=== PATIENT | female | born 1930 | race Caucasian/White ===

== ENCOUNTER 2018-08-28 09:32 | Observation (INO) | payer MEDICARE, OTHER ==
[~2018-08-28] VITALS: Ht 172.7 cm; Wt 72.7 kg
[~2018-08-28 09:32] MED LIST: ASPIR 8181 MG PO; CENTRUM SILVER1 EAC3 PO; CLOPIDOGREL75 MG PO; LEVAQUIN500 MG PO; LEVETIRACETAM500 MG PO; LISINOPRIL10 MG PO; MAGNESIUM OXID400 MG PO; METOPROLOL TART50 MG PO; POTASSIUM CITR10 MEQ PO; POTASSIUM GLUCO99 MG PO; SIMVASTATIN20 MG PO
--- NOTE | 2018-08-28 10:39 | NUR ---
PATIENT TO ROOM #9 YAO HOPE N.P. AT BEDSIDE EVALUATING PATIENT
--- NOTE | 2018-08-28 11:38 | Diagnostic Imaging Report ---
Examination: CT head without contrast Clinical Indication: Fall with head injury. Technique: Transaxial noncontrast images from the skull base through the vertex were obtained. Sagittal and coronal reformatted images were done. Dose modulation, iterative reconstruction, and/or weight based adjustment of the mA/kV was utilized to reduce the radiation dose to as low as reasonably achievable. Comparison: None. Findings: Scalp: No abnormalities. Bones: Intact. No fractures. No blastic or lytic lesions. Brain sulci: Appropriate for patient's age. Ventricles: Normal in size and configuration. No hydrocephalus. . Extra-axial space: No abnormalities. Parenchyma: There are patchy areas of low-attenuation within subcortical and periventricular white matter, nonspecific, but could represent microvascular ischemic disease. A cortical-based infarct is demonstrated in the left middle cerebral artery territory. There is Wallerian degeneration along the left corticospinal tract. A chronic lacunar infarct is identified in the left striatocapsular region and right putamen. No masses, hemorrhage, or acute cortical based vascular insults. Suprasellar region: No abnormalities. Craniocervical junction: The foramen magnum is patent. No Chiari one malformation. Incidental findings: Atherosclerotic calcification of the cavernous and supraclinoid internal carotid and V4 segments of the bilateral vertebral arteries. Impression: 1. No acute intracranial finding. 2. Mild chronic microvascular ischemic change. 3. 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 Signed by: Dr. Belgica Palumbo M.D. on 08/28/2018 11:35 AM
--- NOTE | 2018-08-28 12:22 | Diagnostic Imaging Report ---
Exam: Right hand 3 views History: Fall Comparison: None. Findings: Bones are osteopenic. No acute, displaced fracture or dislocation. Appropriate alignment between the distal radius, lunate, and capitate is maintained on the lateral radiograph. Advanced first carpometacarpal degenerative joint disease with scattered foci of joint space narrowing throughout the interphalangeal joints. Impression: No acute osseous abnormality. Signed by: Dr. Yoav Ontiveros M.D. on 08/28/2018 12:18 PM
--- NOTE | 2018-08-28 12:25 | Diagnostic Imaging Report ---
Exam: Right humerus 2 views, right shoulder, 2 views History: Fall, pain Comparison: None. Findings: The bones are diffusely osteopenic. There is an acute, comminuted, transversely oriented fracture of the surgical neck of the right humerus with one full shaft width medial displacement of the distal humerus. Humeral head projects appropriately adjacent to the glenoid. No acute clavicular fracture. Overlying soft tissue swelling. Partially visualized right hemithorax is well aerated. Impression: Acute, comminuted displaced fracture surgical neck right humerus. Signed by: Dr. Yoav Ontiveros M.D. on 08/28/2018 12:22 PM
--- NOTE | 2018-08-28 12:51 | Diagnostic Imaging Report ---
Examination: CT CERVICAL SPINE WITHOUT CONTRAST HISTORY:Fall with neck injury. Evaluate for fracture. COMPARISON:None. TECHNIQUE: Multidetector helical axial images were obtained without contrast from the foramen magnum to T1. Coronal and sagittal reformatted images were done. Bone and soft tissue windows were evaluated. Dose modulation, iterative reconstruction, and/or weight based adjustment of the mA/kV was utilized to reduce the radiation dose to as low as reasonably achievable. FINDINGS: Alignment:Normal alignment and lordosis. Vertebrae: Normal height and density. No acute fracture, infection or neoplasm. Disc space heights: Normal height. Caliber of spinal canal: Developmentally normal. Posterior fossa and craniocervical junction: Foramen magnum patent. No Chiari 1 malformation. Soft tissues: No abnormality. Degenerative changes: Severe degenerative narrowing at the C1-C2 joint with hyperostosis. Moderate to severe bilateral facet arthropathy from C3-C4 through C6-C7. Severe bilateral neural foraminal narrowing at C4-C5 due to uncovertebral and facet arthropathy. Severe right and moderate left neural foraminal narrowing at 5-6 due to uncovertebral and facet arthropathy. Mild right and moderate left neural foraminal narrowing due to diffuse disc osteophyte complex at C6-C7. Canal stenosis or Visualized lung apices: Biapical pleural thickening. IMPRESSION: No acute abnormality. Signed by: Dr. Belgica Palumbo M.D. on 08/28/2018 12:48 PM
[2018-08-28] MEDS ORDERED: IBUPROFEN 400 MG TAB PO PRN (14:00)
[2018-08-28] MEDS ORDERED: ACETAMINOPHEN 325 MG TAB PO PRN (14:00)
[2018-08-28] MEDS ORDERED: ACETAMINOPHEN/CODEINE 300MG - 30MG TAB PO PRN (14:00)
--- OUTSIDE RECORDS SUMMARY | 2018-08-28 14:38 | XMS REPORT ---
Author Author [facility] Address Unknown Phone Unavailable Care Team Providers Care Main Line Station Engineer Name Role Phone Jennifer EGAN Unavailable Unavailable Problems This patient has no known problems. Allergies, Adverse Reactions, Alerts This patient has no known allergies or adverse reactions. Medications This patient has no known medications. Results Test Description Test Time Test Comments Text Results Atomic Results Result Comments CT CERVICAL SPINE WO 2018-08-28 12:45:00 [place] [id number] Patient Name: DOYLE TILLMAN V MR #: [id number] : 1930 Age/Sex: 88/F Req #: [id number] Adm Physician: Ordered by: YAO HOPE WELDING MACHINE ASSEMBLER Report #: [id number] Location: ER Room/Bed: Procedure: [id number] CT/CT CERVICAL SPINE WO Exam Date: 08/28/18 Exam Time: 1045 REPORT STATUS: Signed Examination: CT CERVICAL SPINE WITHOUT CONTRAST H ISTORY:Fall with neck injury. Evaluate for fracture. COMPARISON:None. TECHNIQUE: Multidetector helical axial images were obtained without contrast from the foramen magnum to T1. Coronal and sagittal reformatted images were done. Bone and soft tissue windows were evaluated. Dose modulation, iterative reconstruction, and/or weight based adjustment of the mA/kV was utilized to reduce the radiation dose to as low as reasonably achievable. FINDINGS: Alignment:Normal alignment and lordosis. Vertebrae: Normal height and density. No acute fracture, infection or neoplasm. Disc space heights: Normal height. Caliber of spinal canal: Developmentally normal. Posterior fossa and craniocervical junction: Foramen magnum patent. No Chiari 1 malformation. Soft tissues: No abnormality. Degenerative changes: Severe degenerative narrowing at the C1-C2 joint with hyperostosis. Moderate to severe bilateral facet arthropathy from C3-C4 through C6-C7. Severe bila teral neural foraminal narrowing at C4-C5 due to uncovertebral and facet arthropathy. Severe right and moderate left neural foraminal narrowing at 5-6 due to uncovertebral and facet arthropathy. Mild right and moderate left neural foraminal narrowing due to diffuse disc osteophyte complex at C6-C7. Canal stenosis or Visualized lung apices: Biapical pleural thickening. IMPRESSION: No acute abnormality. Signed by: Dr. Belgica Palumbo M.D. on 08/28/2018 12:48 PM Dictated By: BELGICA LYNN MD 1248 Transcribed By: CELIA on 08/28/18 1248 COPY TO: YAO HOPE WELDING MACHINE ASSEMBLER SHOULDER RIGHT COMPLETE 2018-08-28 12:20:00 [place] [address] Patient Name: DOYLE TILLMAN V MR #: [id number] : 1930 Age/Sex: 88/F Req #: [id number] Adm Physician: Ordered by: RAFAEL EGAN MD Report #: [id number] Location: ER Room/Bed: Procedure: [id number] DX/SHOULDER RIGHT COMPLETE Exam Date: Exam Time: REPORT STATUS: Signed Exam: Right humerus 2 views, right shoulder, 2 views History: Fall, pain Comparison: None. Findings: The bones are diffusely osteopenic. There is an acute, comminuted, transversely oriented fracture of the surgical neck of the right humerus with one full shaft width medial displacement of the distal humerus. Humeral head projects appropriately adjacent to the glenoid. No acute clavicular fracture. Overlying soft tissue swelling. Partially visualized right hemithorax is well aerated. Impression: Acute, comminuted displaced fracture surgical neck right humerus. Signed by: Dr. Byron Iqbal M.D. on 08/28/2018 12:22 PM Dictated By: BYRON IQBAL MD 1222 Transcribed By: CELIA on 08/28/182 COPY TO: RAFAEL EGAN MD HUMERUS RIGHT 2+VIEWS 2018-08-28 12:20:00 [place] [address] Patient Name: DOYLE TILLMAN V MR #: [id number] : 1930 Age/Sex: 88/F Req #: [id number] Adm Physician: Ordered by: RAFAEL EGAN MD Report #: [id number] Location: ER Room/Bed: Procedure: [id number] DX/HUMERUS RIGHT 2+VIEWS Exam Date: Exam Time: REPORT STATUS: Signed Exam: Right humerus 2 views, right shoulder, 2 views History: Fall, pain Comparison: None. Findings: The bones are diffusely osteopenic. There is an acute, comminuted, transversely oriented fracture of the surgical neck of the right humerus with one full shaft width medial displacement of the distal humerus. Humeral head projects appropriately adjacent to the glenoid. No acute clavicular fracture. Overlying soft tissue swelling. Partially visualized right hemithorax is well aerated. Impression: Acute, comminuted displaced fracture surgical neck right humerus. Signed by: Dr. Byron Iqbal M.D. on 08/28/2018 12:22 PM Dictated By: BYRON IQBAL MD 1222 Transcribed By: CELIA on 08/28/18 1222 COPY TO: RAFAEL EGAN MD HAND 3+ VIEWS RIGHT 2018-08-28 12:17:00 [place] [address] Patient Name: DOYLE TILLMAN V MR #: [id number] : 1930 Age/Sex: 88/F Req #: [id number] Adm Physician: Ordered by: RAFAEL EGAN MD Report #: [id number] Location: ER Room/Bed: Procedure: [id number] DX/HAND 3+ VIEWS RIGHT Exam Date: Exam Time: REPORT STATUS: Signed Exam: Right hand 3 views History: Fall Comparison: None. Findings: Bones are osteopenic. No acute, displaced fracture or dislocation. Appropriate alignment between the distal radius, lunate, and capitate is maintained on the lateral radiograph. Advanced first carpometacarpal degenerative joint disease with scattered foci of joint space narrowing throughout the interphalangeal joints. Impression: No acute osseous abnormality. Signed by: Dr. Byron Iqbal M.D. on 08/28/2018 12:18 PM Dictated By: BYRON IQBAL MD 1218 Transcribed By: CELIA on 08/28/188 COPY TO: RAFAEL EGAN MD CT BRAIN WO 2018-08-28 11:15:00 [place] [address] Patient Name: DOYLE TILLMAN V MR #: [id number] : 1930 Age/Sex: 88/F Req #: [id number] Adm Physician: Ordered by: YAO HOPE WELDING MACHINE ASSEMBLER Report #: [id number] Location: ER Room/Bed: Procedure: [id number] CT/CT BRAIN WO Exam Date: 08/28/18 Exam Time: 1045 REPORT STATUS: Signed Examination: CT head without contrast Clinical Indication: Fall with head injury. Technique: Transaxial noncontrast images from the skull base through the vertex were obtained. Sagittal and coronal reformatted images were done. Dose modulation, iterative reconstruction, and/or weight based adjustment of the mA/kV was utilized to reduce the radiation dose to as low as reasonably achievable. Comparison: None. Findings: Scalp: No abnormalities. Bones: Intact. No fractures. No blastic or lytic lesions. Brain sulci: Appropriate for patient's age. Ventricles: Normal in size and configuration. No hydrocephalus. . Extra-axial space: No abnormalities. Parenchyma: There are patchy areas of low-attenuation within subcortical and periventricular white matter, nonspecific, but could represent microvascular ischemic disease. A cortical-based infarct is demonstrated in the left middle cerebral artery territory. There is Wallerian degeneration along the left corticospinal tract. A chronic lacunar infarct is identified in the left striatocapsular region and right putamen. No masses, hemorrhage, or acute cortical based vascular insults. Suprasellar region: No abnormalities. Craniocervical junction: The foramen magnum is patent. No Chiari one malformation. Incidental findings: Atherosclerotic calcification of the cavernous and supraclinoid internal carotid and V4 segments of the bilateral vertebral arteries. Impression: 1. No acute intracranial finding. 2. Mild chronic microvascular ischemic change. 3. 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 Signed by: Dr. Belgica Palumbo M.D. on 08/28/2018 11:35 AM Dictated By: BELGICA LYNN MD 1135 Transcribed By: CELIA on 08/28/18 1135 COPY TO: YAO HOPE NP
[2018-08-28 15:20] VITALS: BP 188/79
[2018-08-28 15:45] VITALS: BP 188/79
--- NOTE | 2018-08-28 15:45 | NUR ---
PATIENT RECEIVED FROM ER PER STRETCHER. ALERT AND VERBALLY RESPONSIVE, SOME EXPRESSIVE APHASIA NOTED. S/P FALL AT HOME; IMMOBILIZER TO RIGHT SHOULDER , SKIN TEAR TO LEFT ELBOW, BRUISE TO RIGHT SHOULDER. RIGHT SIDE WEAKNESS DUE TO PREVIOUS CVA. BED IN LOWER POSITION AND LOCKED. CALL LIGHT AT EASY REACH, INSTRUCTED TO CALL FOR ASSISTANCE NEEDED. FAMILY AT BED SIDE.
[2018-08-28 16:00] VITALS: BP 188/79
--- NOTE | 2018-08-28 16:35 | NUR ---
SPOKE WITH MD REGARDING ELEVATED B/P, NEW ORDER RECEIVED.
[2018-08-28] MEDS: LISINOPRIL 10 MG TAB PO SCH (16:59)
[2018-08-28 20:00] VITALS: BP 161/71
[2018-08-28 21:00] VITALS: BP 161/71
[2018-08-29] VITALS: BP 137/62
[2018-08-29 04:00] VITALS: BP 152/65
[2018-08-29 05:45] LABS: BASOPHILS % 0.3 % (0.0-1.0); EOSINOPHILS % 0.5 % (0.0-6.0); HEMATOCRIT 38.1 % (34.2-44.1); HEMOGLOBIN 12.6 g/dL (12.0-16.0); LYMPHOCYTES # (AUTO) 2.5 (1.0-3.2); LYMPHOCYTES % 33.1 % (18.0-39.1); MEAN CORPUSCULAR HGB CONC 33.1 g/dL (31-35); MEAN CORPUSCULAR VOLUME 99.7 fL (81-99); MONOCYTES # (AUTO) 1.4 (0.2-0.8); MONOCYTES % 18.3 % (4.4-11.3); NEUTROPHILS # (AUTO) 3.6 (2.1-6.9); NEUTROPHILS % 47.3 % (38.7-80.0); PLATELET COUNT 176 x10e3/uL (140-360); RED BLOOD COUNT 3.82 x10e6/uL (3.6-5.1)
[2018-08-29 06:14] LABS: ALANINE AMINOTRANSFERASE 15 IU/L (0-55); ALBUMIN 3.7 g/dL (3.5-5.0); ALBUMIN/GLOBULIN RATIO 1.5 (0.8-2.0); ALKALINE PHOSPHATASE 43 IU/L (40-150); ANION GAP 13.9 mmol/L (8-16); BLOOD UREA NITROGEN 24 mg/dL (7-26); BUN/CREATININE RATIO 27 (6-25); CALCIUM 9.4 mg/dL (8.4-10.2); CARBON DIOXIDE 21 mmol/L (22-29); CHLORIDE 109 mmol/L (98-107); CREATININE, SERUM 0.88 mg/dL (0.57-1.11); EST GLOMERULAR FILTRATION RATE > 60 ML/MIN (60-); GLUCOSE 114 mg/dL (74-118); POTASSIUM 3.9 mmol/L (3.5-5.1); SODIUM 140 mmol/L (136-145)
[2018-08-29 07:28] VITALS: BP 156/72
--- NOTE | 2018-08-29 08:40 | NUR ---
ORDERS FOR DR STIVEN [facility] EVAL MORE APPROPRIATE FOR SNF LEVEL OF CARE NO INPT CRITERIA CALLED AND NOTIFIED DR COLLAZO ORDER FOR SNF EVAL
[2018-08-29] MEDS: LEVOFLOXACIN 500 MG TAB PO SCH (08:58)
[2018-08-29] MEDS: LISINOPRIL 10 MG TAB PO SCH (08:59)
[2018-08-29] MEDS: METOPROLOL TARTRATE 50 MG TAB PO SCH (08:59)
[2018-08-29 11:37] VITALS: BP 133/61
--- NOTE | 2018-08-29 12:36 | NUR ---
SPOKE WITH FAMILY ABOUT DIFFERENT LEVELS OF CRITERIA OF CARE, GOT CHOICE [facility] FILED IN CHART REP IS MEETING WITH FAMILY AT THIS TIME, WILL UPDATE WHEN GET MORE INFORMATION
--- NOTE | 2018-08-29 12:38 | NUR ---
SOCIAL WORK INITIAL ASSESSMENT Product Marketing Coordinator to bedside to discuss plan of care with patient/family. CM/SW role and care transitions discussed. Anticipated discharge plan discussed along with duration of care. CM/SW discussed patients right to make decisions in care. CM/SW work hours given. Patient lives: IN HOUSE ALONE Admit/Transfer: VIA HOME POA/Emergency contact: DAUGHTER ABIGAIL FERNANDES [phone] SON BJORN TILLMAN [phone] Current/Previous Home Health: NONE PCP/Follow-up Care: VALE Current/Previous DME: TJ Other Services: NONE Employment Status: RETIRED Areas of Concerns: NONE Referral Needs: SNF Education Needs: NONE IMM/MARMOLEJO given and signed (if applicable): MARMOLEJO Goal for discharge: SNF CM/SW left business card at the bedside with contact information. Name and number was also written on the patients whiteboard. Patient verbalized understanding of discussion. CM will follow-up with ongoing discharge and transition of care needs.
--- NOTE | 2018-08-29 13:16 | NUR ---
RTF COMPLETED AND PUT WITH CHART AT STATION FOR COMPLETION OF TRANSFER WHEN DISCHARGE ORDER IS OBTAINED.
[2018-08-29 15:07] VITALS: BP 118/58
--- NOTE | 2018-08-29 18:55 | NUR ---
Received report from previous nurse. Call west within reach. Patient in bed.
[2018-08-29 20:22] VITALS: BP 174/74
[2018-08-29] MEDS ORDERED: MAGNESIUM OXIDE 400 MG TAB PO SCH (21:00)
[2018-08-29] MEDS ORDERED: LEVETIRACETAM 500 MG TAB PO SCH (21:00)
[2018-08-29] MEDS ORDERED: SIMVASTATIN 20 MG TAB PO SCH (21:00)
[2018-08-29] MEDS ORDERED: CLOPIDOGREL BISULFATE 75 MG TAB PO SCH (21:00)
[2018-08-29] MEDS ORDERED: ASPIRIN 81 MG CHEW TAB PO SCH (21:00)
[2018-08-30] VITALS: BP 145/67
[2018-08-30 00:14] VITALS: BP 145/67
--- NOTE | 2018-08-30 02:16 | Consultation ---
DATE OF CONSULTATION: 08/29/2018 REASON FOR CONSULTATION: 1. Right humeral fracture. 2. Expressive aphasia. HISTORY: Mainly from medical record and chart as the patient is not able to give me any history at all and is a very poor historian. The patient is an [id number], who came into the hospital after falling and found to have a subacromial fracture of the humerus. She was to be evaluated by Orthopedics. The patient cannot given me any history and in fact seems to have some expressive aphasia. Not able to really give much information as to her prior level of function or her home situation. The patient underwent CT of the brain which showed no acute intracranial findings. There is a chronic left middle cerebral artery infarct with chronic lacunar infarction noted. She had a cervical spine series, which showed no acute abnormality and also the right hand x-ray showed no acute osseous abnormality. Right humeral x-ray showed acute comminuted displaced fracture of the cervical neck right humerus. The patient is otherwise in the sling right now in the right arm. The patient's information is limited as there is no other information in the chart or in the electronic medical records at this time. PAST MEDICAL HISTORY: Apparently, left MCA CVA with expressive aphasia. PAST SURGICAL HISTORY: Uncertain. SOCIAL HISTORY: Uncertain. FAMILY HISTORY: Unable to obtain. REVIEW OF SYSTEMS: Unable to obtain. PHYSICAL EXAMINATION: VITAL SIGNS: Temperature 97.5, respirations 18, , blood pressure 133/61. GENERAL: The patient is sitting in the bed. MUSCULOSKELETAL: Her right shoulder is more anterior. She is in a shoulder sling right now, not complaining of much pain. She can move her left arm fairly well, but with regard to her lower extremity she really did resist against me. She can move her legs, but she did not follow commands to ankle dorsiflex or flex her hips or knees. HEART: Regular rate and rhythm. LUNGS: Diminished breath sounds, but did not take a deep breath. ABDOMEN: Nontender, nondistended. NECK: No JVD. NEURO: Neurovascular signs are intact to the right arm and leg. LABORATORY DATA: White cell count is 7.5, hemoglobin 12.6, hematocrit 38.1, platelets 176. IMPRESSION: 1. Right humeral neck fracture displaced. Ortho evaluation pending. 2. Expressive aphasia. She can communicate, but is not able to really follow commands at least not this time. 3. Chronic right MCA CVA. PLAN: Await orthopedic evaluation. We will follow along with you. Next level of care depended on what she is able do therapy . Thank you once again for allowing me to participate in the care of this pleasant, but unfortunate patient. Howard Diamond DO RPL/MODL /[id number]
[2018-08-30 04:00] VITALS: BP 160/72
--- NOTE | 2018-08-30 06:47 | NUR ---
Patient refused shower and bath
--- NOTE | 2018-08-30 06:48 | NUR ---
Patient son was in the room and patient refused shower/bath. Son asked her a couple times and she said no to bathing
--- NOTE | 2018-08-30 07:11 | NUR ---
Gave report to oncoming nurse. call west within reach. patient in bed.
[2018-08-30 08:19] VITALS: BP 142/73
[2018-08-30] MEDS: LEVOFLOXACIN 500 MG TAB PO SCH (08:52)
[2018-08-30] MEDS: LISINOPRIL 10 MG TAB PO SCH (08:53)
[2018-08-30] MEDS: METOPROLOL TARTRATE 50 MG TAB PO SCH (08:53)
--- NOTE | 2018-08-30 11:18 | NUR ---
Report given to Nurse B[facility] at [facility].
[2018-08-30 12:17] VITALS: BP 142/64
--- NOTE | 2018-09-02 05:43 | Discharge Summary ---
DISCHARGE DIAGNOSES: 1. Status post fall with a right humeral fracture. 2. History of cerebrovascular accident with expressive aphasia. 3. Hypertension. 4. Hyperlipidemia. 5. History of seizure. DISPOSITION: The patient was transferred to a prison facility. HISTORY OF PRESENT ILLNESS AND HOSPITAL COURSE: The patient is a lady who lives at home, who unfortunately fell and sustained a right proximal humeral fracture, who was seen by Orthopedics, who said that she did not need surgical intervention at this time, but then did a splint and will follow up as an outpatient with Dr. Whaley, the orthopedist, but due to living on her own, the patient is not going to be able to attend to herself, so we looked at inpatient rehab which she did not qualify per her insurance. She did have evidence of urinary tract infection and did grow out Streptococcus viridans, but she was transferred with Levaquin and so when she was approved for prison, she was then transferred to a prison facility for continued therapy until she gets independent and can move back home, so please see hospital chart for full details. MD KEN Goddard/KARTHIKEYAN /[id number]
== END 2018-08-30 12:46 ==
LOC: ER 09:32 → ERHOLD 14:34 → IMCU 15:07
PROVIDERS: ADMIT Internal Medicine; ATTEND Internal Medicine
DX: S42.221A 2-part displaced fracture of surgical neck of right humerus, initial encounter for closed fracture (principal); W01.0XXA Fall on same level from slipping, tripping and stumbling without subsequent striking against object, initial encounter; Y93.01 Activity, walking, marching and hiking; Y92.019 Unspecified place in single-family (private) house as the place of occurrence of the external cause; I25.10 Atherosclerotic heart disease of native coronary artery without angina pectoris; I25.2 Old myocardial infarction; I10 Essential (primary) hypertension; I69.351 Hemiplegia and hemiparesis following cerebral infarction affecting right dominant side; Z09 Encounter for follow-up examination after completed treatment for conditions other than malignant neoplasm; Z98.61 Coronary angioplasty status; Z88.8 Allergy status to other drugs, medicaments and biological substances; Z82.49 Family history of ischemic heart disease and other diseases of the circulatory system; Z79.01 Long term (current) use of anticoagulants; E78.00 Pure hypercholesterolemia, unspecified; G40.909 Epilepsy, unspecified, not intractable, without status epilepticus; I69.320 Aphasia following cerebral infarction; N39.0 Urinary tract infection, site not specified; B95.4 Other streptococcus as the cause of diseases classified elsewhere
CPT/HCPCS: 36415; 70450; 72125; 73030; 73060; 73130; 80053; 83735; 85025; 87086; 99284; G0378 ×3

== ENCOUNTER 2018-12-22 18:59 | Inpatient (IN) | payer MEDICARE ==
[~2018-12-22] VITALS: Ht 172.7 cm; Wt 77.3 kg
[2018-12-22] MEDS: SODIUM CHLORIDE 0.9% 1000ML 1,000 ML IV SCH
--- OUTSIDE RECORDS SUMMARY | 2018-12-22 19:03 | XMS REPORT | Continuity of Care Document ---
Author Author [email or web address] Address Unknown Phone Unavailable Care Team Providers Care Security And Privacy Consultant Name Role Phone [facility] [employer] Unavailable Unavailable Problems Problem Status Onset Date Classification Date Reported Comments Source Dehydration Active Problem 08/30/2018 [facility] Frequent falls Active Problem 08/30/2018 [facility] Humerus surgical neck fracture Active Problem 08/30/2018 [facility] Medications Medication Details Route Status Patient Instructions Ordering Provider Order Date Source Aspirin (Aspir 81) 81 Mg Tablet. Bedtime [facility] Clopidogrel Bisulfate (Clopidogrel) 75 Mg Tablet Bedtime Active [facility] Levetiracetam 500 Mg Tablet Bedtime Active [facility] Levofloxacin (Levaquin) 500 Mg Tablet Daily Active [facility] Lisinopril 10 Mg Tablet Daily [facility] Magnesium Oxide 400 Mg Tablet Bedtime [facility] Metoprolol Tartrate 50 Mg Tablet Daily [facility] Mu-Vits-Min Th/Lycopene/Lutein (Centrum Silver Tablet) 1 Each Tablet Daily [facility] Potassium Gluconate 99 Mg Tablet Bedtime [facility] Simvastatin 20 Mg Tablet Today At 9:00PM [facility] Allergies, Adverse Reactions, Alerts Substance Category Reaction Severity Reaction type Status Date Reported Comments Source PHENERGAN---POSSIBLE DRUG ALLERGIES---NOT SURE Unknown Allergy to Substance Active 01/09/2009 [facility] Promethazine POSSIBLE DRUG ALLERGY- NOT SURE Unknown Allergy to Substance Active 11/21/2016 [facility] Immunizations No Data Provided for This Section Results Order Name Results Value Reference Range Date Interpretation Comments Source Blood leukocytes automated count (number/volume) 7.53 4.8 - 10.8 08/29/2018 [facility] Blood erythrocytes automated count (number/volume) 3.82 3.6 - 5.1 08/29/2018 [facility] Blood hemoglobin measurement (moles/volume) 12.6 12.0 - 16.0 08/29/2018 [facility] Automated blood hematocrit (volume fraction) 38.1 34.2 - 44.1 08/29/2018 [facility] Automated erythrocyte mean corpuscular volume 99.7 81 - 99 08/29/2018 [facility] Automated erythrocyte mean corpuscular hemoglobin (mass per erythrocyte) 33.0 28 - 32 08/29/2018 [facility] Automated erythrocyte mean corpuscular hemoglobin concentration measurement (mass/volume) 33.1 31 - 35 08/29/2018 [facility] RDW BldCo-Rto 14.0 11.7 - 14.4 08/29/2018 [facility] Automated blood platelet count (count/volume) 176 140 - 360 08/29/2018 [facility] Automated blood segmented neutrophil count as percentage of total leukocytes 47.3 38.7 - 80.0 08/29/2018 [facility] Automated blood lymphocyte count as percentage ot total leukocytes 33.1 18.0 - 39.1 08/29/2018 [facility] Automated blood monocyte count as percentage of total leukocytes 18.3 4.4 - 11.3 08/29/2018 [facility] Automated blood eosinophil count as percentage of total leukocytes 0.5 0.0 - 6.0 08/29/2018 [facility] Automated blood basophil count as percentage of total leukocytes 0.3 0.0 - 1.0 08/29/2018 [facility] IM GRANULOCYTES % 0.5 0.0 - 1.0 08/29/2018 [facility] Automated blood neutrophil count 3.6 2.1 - 6.9 08/29/2018 [facility] Blood lymphocytes count (number/volume) 2.5 1.0 - 3.2 08/29/2018 [facility] Blood monocytes automated count (number/volume) 1.4 0.2 - 0.8 08/29/2018 [facility] Automated blood eosinophil count 0.0 0.0 - 0.4 08/29/2018 [facility] Automated blood basophil count (count/volume) 0.0 0.0 - 0.1 08/29/2018 [facility] Absolute Immature Granulocyte (auto 0.04 0 - 0.1 08/29/2018 [facility] Serum or plasma sodium measurement (moles/volume) 140 136 - 145 08/29/2018 [facility] Serum or plasma potassium measurement (moles/volume) 3.9 3.5 - 5.1 08/29/2018 [facility] Serum or plasma chloride measurement (moles/volume) 109 98 - 107 08/29/2018 [facility] Serum or plasma carbon dioxide, total measurement (moles/volume) 21 22 - 29 08/29/2018 [facility] Serum or plasma anion gap 13.9 8 - 16 08/29/2018 [facility] Serum or plasma urea nitrogen measurement (mass/volume) 24 7 - 26 08/29/2018 [facility] Serum or plasma creatinine measurement (mass/volume) 0.88 0.57 - 1.11 08/29/2018 [facility] Serum or plasma urea nitrogen/creatinine mass ratio 27 6 - 25 08/29/2018 [facility] Estimated glomerular filtration rate (GFR) determination > 60 60 08/29/2018 [facility] Glucose measurement 114 74 - 118 08/29/2018 [facility] Serum or plasma calcium measurement (mass/volume) 9.4 8.4 - 10.2 08/29/2018 [facility] Serum or plasma magnesium measurement (mass/volume) 2.3 1.3 - 2.1 08/29/2018 [facility] Serum or plasma total bilirubin measurement (mass/volume) 0.6 0.2 - 1.2 08/29/2018 [facility] Aspartate Amino Transf (AST/SGOT) 17 5 - 34 08/29/2018 [facility] Serum or plasma alanine aminotransferase measurement (enzymatic activity/volume) 15 0 - 55 08/29/2018 [facility] Serum or plasma protein measurement (mass/volume) 6.2 6.5 - 8.1 08/29/2018 [facility] Serum or plasma albumin measurement (mass/volume) 3.7 3.5 - 5.0 08/29/2018 [facility] Plasma globulin measurement (mass/volume) 2.5 2.3 - 3.5 08/29/2018 [facility] Serum or plasma albumin/globulin mass ratio 1.5 0.8 - 2.0 08/29/2018 [facility] Serum or plasma alkaline phosphatase measurement (enzymatic activity/volume) 43 40 - 150 08/29/2018 [facility] Bacterial urine culture Urine Culture [facility] Pathology Reports No Data Provided for This Section Diagnostic Reports No Data Provided for This Section Consultation Notes No Data Provided for This Section Discharge Summaries No Data Provided for This Section History and Physicals No Data Provided for This Section Vital Signs No Data Provided for This Section Encounters Location Location Details Encounter Type Encounter Number Reason For Visit Attending Provider ADM Date DC Date Status Source Discharged Inpatient (obs) [id number] SABA COLLAZO MD 08/28/2018 08/30/2018 [facility] Procedures Procedure Code Date Perfomer Comments Source Computed tomography of brain without radiopaque contrast [id number] 08/28/2018 [facility] Computed tomography of cervical spine without contrast [id number] 08/28/2018 [facility] Assessment and Plan No Data Provided for This Section Plan of Care Plan of Care Date Source Discharge Date 08/30/18 12:46pm Disposition TRANSFER [facility] Instructions/Education Provided Fractures - Humerus Fall Prevention Weakness (Generalized) Prescriptions See Medication Section Additional Instructions/Education Activity as tolerated Diet as tolerated 08/30/2018 [facility] Social History Social History Date Source Social History Problem Response Recorded Date/Time Onset Date Status Hx Psychiatric Problems No 11/22/2016 2:50pm Not Applicable Not Applicable Hx Eating Disorder No 11/22/2016 2:50pm Not Applicable Not Applicable Hx Substance Use Disorder No 11/22/2016 2:50pm Not Applicable Not Applicable Hx Depression No 11/22/2016 2:50pm Not Applicable Not Applicable Hx Alcohol Use No 11/22/2016 2:50pm Not Applicable Not Applicable Hx Physical Abuse No 11/22/2016 2:50pm Not Applicable Not Applicable Smoking Status Start Date Stop Date Never Smoker 08/30/2018 [facility] Family History No Data Provided for This Section Advance Directives Order Name Results Value Date Source Advance Directives Advance Directives Directive Response Recorded Date/Time Does the patient have an advance directive? No 08/28/18 3:45pm If yes, is advance directive on file with [facility]? No 08/28/18 3:45pm If not on file with [facility] will patient provide a copy? Yes 08/28/18 3:45pm Do you have a Directive to Physician? Yes 08/28/18 10:15am Do you have a Medical Power of Rental Salesperson? Yes 08/28/18 10:15am Do you have an out of hospital Do Not Resuscitate Order? Yes 08/28/18 10:15am Do you have any special needs we should be aware of? No 08/28/18 10:15am Do you have a support person here with you today? Yes 08/28/18 10:15am Did patient receive Notice of Privacy Practices? Yes 08/28/18 10:15am Did patient receive patient rights and responsibilities? Yes 08/28/18 10:15am 08/30/2018 [facility] Functional Status No Data Provided for This Section
[2018-12-22] MEDS ORDERED: ACETAMINOPHEN 1000 MG/100 ML 100 ML IV ONE (19:37)
[2018-12-22] MEDS ORDERED: ACETAMINOPHEN 1000 MG/100 ML IV STA (19:43)
[2018-12-22] MEDS ORDERED: SODIUM CHLORIDE 0.9% 1000ML 1,000 ML IV ONE (19:45)
[2018-12-22 19:51] LABS: BASOPHILS % 0.2 % (0.0-1.0); EOSINOPHILS % 0.1 % (0.0-6.0); HEMATOCRIT 40.3 % (34.2-44.1); HEMOGLOBIN 13.6 g/dL (12.0-16.0); LYMPHOCYTES % 9.3 % (18.0-39.1); MEAN CORPUSCULAR HEMOGLOBIN 33.2 pg (28-32); MEAN CORPUSCULAR HGB CONC 33.7 g/dL (31-35); MEAN CORPUSCULAR VOLUME 98.3 fL (81-99); MONOCYTES % 11.4 % (4.4-11.3); NEUTROPHILS % 77.9 % (38.7-80.0); PLATELET COUNT 168 x10e3/uL (140-360); RED CELL DISTRIBUTION WIDTH 13.3 % (11.7-14.4)
[2018-12-22 19:52] LABS: LYMPHOCYTES # (AUTO) 1.2 (1.0-3.2); MONOCYTES # (AUTO) 1.5 (0.2-0.8); NEUTROPHILS # (AUTO) 10.4 (2.1-6.9)
[2018-12-22 20:03] LABS: INR 1.06; PROTHROMBIN TIME 14.3 seconds (11.9-14.5)
[2018-12-22 20:04] LABS: PARTIAL THROMBOPLASTIN TIME 31.3 seconds (23.8-35.5)
[2018-12-22 20:11] LABS: AMYLASE 60 U/L (25-125); LIPASE 35 U/L (8-78)
[2018-12-22 20:13] LABS: ALBUMIN 4.1 g/dL (3.5-5.0); ALBUMIN/GLOBULIN RATIO 1.6 (0.8-2.0); ANION GAP 15.4 mmol/L (8-16); CALCIUM 9.7 mg/dL (8.4-10.2); CREATININE, SERUM 1.2 mg/dL (0.57-1.11); POTASSIUM 4.4 mmol/L (3.5-5.1)
[2018-12-22] MEDS ORDERED: CEFTRIAXONE SOD 1 GM/NS 50 ML 50 ML IV ONE (20:30)
[2018-12-22] MEDS ORDERED: TRIAMCINOLONE A15 G1 TOP (20:35)
[2018-12-22 20:55] LABS: BILIRUBIN,URINE NEGATIVE (NEGATIVE); CLARITY,URINE TURBID (CLEAR); COLOR,URINE RED (YELLOW); KETONES,URINE NEGATIVE (NEGATIVE); LEUKOCYTE ESTERASE ,URINE SMALL (NEGATIVE); NITRITE,URINE POSITIVE (NEGATIVE); URINE UROBILINOGEN 0.2 mg/dL (0.2 - 1)
[2018-12-22 20:56] LABS: PROTEIN,URINE DIPSTICK 3+ (NEGATIVE)
[2018-12-22 20:58] LABS: BACTERIA,URINE MODERATE /HPF; EPITHELIAL CELLS,URINE RARE /LPF; RBC,URINE >50 /HPF (0-5)
--- NOTE | 2018-12-22 22:08 | Diagnostic Imaging Report ---
EXAM: CT Abdomen and Pelvis WITHOUT contrast INDICATION: ^abd pain, fever, bloody diarrhea ^20181222 ^2100 ^Y COMPARISON: None. TECHNIQUE: Abdomen and pelvis were scanned utilizing a multidetector helical scanner from the lung base to the pubic symphysis without administration of IV contrast. Absence of intravenous contrast decreases sensitivity for detection of focal lesions and vascular pathology. Coronal and sagittal reformations were obtained. Routine protocol was performed. IV CONTRAST: None ORAL CONTRAST: None. COMPLICATIONS: None RADIATION DOSE: Total DLP: 609.38 mGy*cm Estimated effective dose: (DLP x 0.015 x size factor) mSv CTDIvol has been reviewed. It is below the limits set by the Radiation Protocol Committee (RPC). FINDINGS: LINES and TUBES: None. LOWER THORAX: Posterior bilateral lower lobe hazy opacities. HEPATOBILIARY: Borderline hepatomegaly. Hepatic dome calcified granuloma. Approximately 1.4 cm left hepatic lobe hypodensity (series 2, image 13) cannot be characterized on this unenhanced study. No biliary ductal dilation. GALLBLADDER: No radio-opaque stones or sludge. No wall thickening. SPLEEN: No splenomegaly. PANCREAS: No focal masses or ductal dilatation. ADRENALS: No adrenal nodules KIDNEYS/URETERS: No hydronephrosis. No contour deforming renal lesion. Evaluation of renal parenchyma is limited without intravenous contrast. Mild nonspecific bilateral perinephric fat stranding. No stones. GI TRACT: No abnormal distention, wall thickening, or evidence of bowel obstruction. Colonic diverticulosis without evidence of there is colitis. Appendix is normal. PELVIC ORGANS/BLADDER: Irregular pelvic mass with calcifications is probably enlarged multi fibroid uterus. Bladder is nondistended, demonstrating mild wall thickening. LYMPH NODES: No lymphadenopathy. VESSELS: There is moderate atherosclerotic disease in the aorta and major arterial branches. Ectatic focal infrarenal abdominal aorta measuring 2.6 cm. PERITONEUM / RETROPERITONEUM: No free air or fluid. BONES: Generalized demineralization. Degenerative changes of spine. SOFT TISSUES: Unremarkable. IMPRESSION: 1. Limited study without intravenous contrast. 2. No nephrolithiasis or evidence of obstructive urolithiasis. 3. Bladder wall thickening, could be due to underdistention or cystitis in the appropriate clinical context. 4. Colonic diverticulosis without evidence of diverticulitis. 5. Pelvic mass with calcifications, probably enlarged multi fibroid uterus, which can be further evaluated with nonurgent ultrasound. 6. Posterior bilateral lower lobe lung hazy opacities, probably subsegmental atelectasis. Underlying pneumonia cannot be excluded in the appropriate clinical context. Signed by: Dr. Zenon Conte MD on 12/22/2018 10:05 PM
--- NOTE | 2018-12-22 22:11 | Diagnostic Imaging Report ---
EXAMINATION: CHEST SINGLE (PORTABLE) INDICATION: ^fever ^20181222 ^2109 ^Y COMPARISON: None FINDINGS: AP view TUBES and LINES: None. LUNGS: Lungs are well inflated. Central peribronchial cuffing. PLEURA: No pleural effusion or pneumothorax. HEART AND MEDIASTINUM: The cardiomediastinal silhouette is unremarkable. BONES AND SOFT TISSUES: No acute osseous lesion. Nonhealed fracture deformity of right humeral head. Soft tissues are unremarkable. UPPER ABDOMEN: No free air under the diaphragm. IMPRESSION: Central peribronchial cuffing. Underlying/developing pneumonia cannot be excluded in the right infrahilar region. Signed by: Dr. Zenon Conte MD on 12/22/2018 10:08 PM
[2018-12-22] MEDS ORDERED: AZITHROMYCIN 500MG/NS 250 ML 250 ML IV STA (22:16)
[2018-12-22] MEDS ORDERED: AZITHROMYCIN 500MG/SOD CHL 0.9% 250ML BAG IV SCH (22:30)
[2018-12-22] MEDS ORDERED: CEFTRIAXONE SOD 1 GRAM/0.9% SOD CHL 50ML BAG IV SCH (22:30)
--- OUTSIDE RECORDS SUMMARY | 2018-12-22 22:38 | XMS REPORT | Continuity of Care Document ---
Author Author [employer] Address Unknown Phone Unavailable Care Team Providers Care Chimney Builder Helper Name Role Phone [facility] [employer] Unavailable Unavailable Problems Problem Status Onset Date Classification Date Reported Comments Source Dehydration Active Problem 08/30/[address] [facility] Frequent falls Active Problem 08/30/[address] [facility] Humerus surgical neck fracture Active Problem 08/30/[address] [facility] Medications Medication Details Route Status Patient Instructions Ordering Provider Order Date Source Aspirin (Aspir 81) 81 Mg Tablet. Bedtime [facility] Clopidogrel Bisulfate (Clopidogrel) 75 Mg Tablet Bedtime Active [facility] Levetiracetam 500 Mg Tablet Bedtime Active [facility] Levofloxacin (Levaquin) 500 Mg Tablet Daily Active [facility] Lisinopril 10 Mg Tablet Daily [facility] Magnesium Oxide 400 Mg Tablet Bedtime [facility] Metoprolol Tartrate 50 Mg Tablet Daily [facility] Mu-Vits-Min Th/Lycopene/Lutein (Centrum Silver Tablet) 1 Each Tablet Daily [facility] Potassium Gluconate 99 Mg Tablet Bedtime [facility] Simvastatin 20 Mg Tablet Today At 9:00PM [facility] Allergies, Adverse Reactions, Alerts Substance Category Reaction Severity Reaction type Status Date Reported Comments Source PHENERGAN---POSSIBLE DRUG ALLERGIES---NOT SURE Unknown Allergy to Substance Active 01/09/[address] [facility] Promethazine POSSIBLE DRUG ALLERGY- NOT SURE Unknown Allergy to Substance Active 11/21/[address] [facility] Immunizations No Data Provided for This Section Results Order Name Results Value Reference Range Date Interpretation Comments Source Blood leukocytes automated count (number/volume) 7.53 4.8 - 10.8 08/29/[address] [facility] Blood erythrocytes automated count (number/volume) 3.82 3.6 - 5.1 08/29/[address] [facility] Blood hemoglobin measurement (moles/volume) 12.6 12.0 - 16.0 08/29/[address] [facility] Automated blood hematocrit (volume fraction) 38.1 34.2 - 44.1 08/29/[address] [facility] Automated erythrocyte mean corpuscular volume 99.7 81 - 99 08/29/[address] [facility] Automated erythrocyte mean corpuscular hemoglobin (mass per erythrocyte) 33.0 28 - 32 08/29/[address] [facility] Automated erythrocyte mean corpuscular hemoglobin concentration measurement (mass/volume) 33.1 31 - 35 08/29/[address] [facility] RDW BldCo-Rto 14.0 11.7 - 14.4 08/29/[address] [facility] Automated blood platelet count (count/volume) 176 140 - 360 08/29/[address] [facility] Automated blood segmented neutrophil count as percentage of total leukocytes 47.3 38.7 - 80.0 08/29/[address] [facility] Automated blood lymphocyte count as percentage ot total leukocytes 33.1 18.0 - 39.1 08/29/[address] [facility] Automated blood monocyte count as percentage of total leukocytes 18.3 4.4 - 11.3 08/29/[address] [facility] Automated blood eosinophil count as percentage of total leukocytes 0.5 0.0 - 6.0 08/29/[address] [facility] Automated blood basophil count as percentage of total leukocytes 0.3 0.0 - 1.0 08/29/[address] [facility] IM GRANULOCYTES % 0.5 0.0 - 1.0 08/29/[address] [facility] Automated blood neutrophil count 3.6 2.1 - 6.9 08/29/[address] [facility] Blood lymphocytes count (number/volume) 2.5 1.0 - 3.2 08/29/[address] [facility] Blood monocytes automated count (number/volume) 1.4 0.2 - 0.8 08/29/[address] [facility] Automated blood eosinophil count 0.0 0.0 - 0.4 08/29/[address] [facility] Automated blood basophil count (count/volume) 0.0 0.0 - 0.1 08/29/[address] [facility] Absolute Immature Granulocyte (auto 0.04 0 - 0.1 08/29/[address] [facility] Serum or plasma sodium measurement (moles/volume) 140 136 - 145 08/29/[address] [facility] Serum or plasma potassium measurement (moles/volume) 3.9 3.5 - 5.1 08/29/[address] [facility] Serum or plasma chloride measurement (moles/volume) 109 98 - 107 08/29/[address] [facility] Serum or plasma carbon dioxide, total measurement (moles/volume) 21 22 - 29 08/29/[address] [facility] Serum or plasma anion gap 13.9 8 - 16 08/29/[address] [facility] Serum or plasma urea nitrogen measurement (mass/volume) 24 7 - 26 08/29/[address] [facility] Serum or plasma creatinine measurement (mass/volume) 0.88 0.57 - 1.11 08/29/[address] [facility] Serum or plasma urea nitrogen/creatinine mass ratio 27 6 - 25 08/29/[address] [facility] Estimated glomerular filtration rate (GFR) determination > 60 60 08/29/[address] [facility] Glucose measurement 114 74 - 118 08/29/[address] [facility] Serum or plasma calcium measurement (mass/volume) 9.4 8.4 - 10.2 08/29/[address] [facility] Serum or plasma magnesium measurement (mass/volume) 2.3 1.3 - 2.1 08/29/[address] [facility] Serum or plasma total bilirubin measurement (mass/volume) 0.6 0.2 - 1.2 08/29/[address] [facility] Aspartate Amino Transf (AST/SGOT) 17 5 - 34 08/29/[address] [facility] Serum or plasma alanine aminotransferase measurement (enzymatic activity/volume) 15 0 - 55 08/29/[address] [facility] Serum or plasma protein measurement (mass/volume) 6.2 6.5 - 8.1 08/29/[address] [facility] Serum or plasma albumin measurement (mass/volume) 3.7 3.5 - 5.0 08/29/[address] [facility] Plasma globulin measurement (mass/volume) 2.5 2.3 - 3.5 08/29/[address] [facility] Serum or plasma albumin/globulin mass ratio 1.5 0.8 - 2.0 08/29/[address] [facility] Serum or plasma alkaline phosphatase measurement (enzymatic activity/volume) 43 40 - 150 08/29/[address] [facility] Bacterial urine culture Urine Culture [facility] Pathology Reports No Data Provided for This [...] DC Date Status Source Discharged Inpatient (obs) [id number] SABA COLLAZO MD 08/28/2018 08/30/[address] [facility] Procedures Procedure Code Date Perfomer Comments Source Computed tomography of brain without radiopaque contrast [id number] 08/28/2018 [facility] Computed tomography of cervical spine without contrast [id number] 08/28/2018 [facility] Assessment and Plan No Data Provided for This Section Plan of Care Plan of Care Date Source Discharge Date 08/30/18 12:46pm Disposition TRANSFER LONG TERM Instructions/Education Provided Fractures - Humerus Fall Prevention Weakness (Generalized) Prescriptions See Medication Section Additional Instructions/Education Activity as tolerated Diet as tolerated 08/30/[address] [facility] Social History Social History Date Source Social [...] Start Date Stop Date Never Smoker 08/30/[address] [facility] Family History No Data Provided for This Section Advance Directives Order Name Results Value Date Source Advance Directives Advance Directives Directive Response Recorded Date/Time Does the patient have an advance directive? No 08/28/18 3:45pm If yes, is advance directive on file with [facility]? No 08/28/18 3:45pm If not on file with [facility] will patient provide a copy? Yes 08/28/18 3:45pm Do you have a Directive to Physician? Yes 08/28/18 10:15am Do you have a Medical Power of Freight Rate Specialist? Yes 08/28/18 10:15am Do you have an [...] rights and responsibilities? Yes 08/28/18 10:15am 08/30/[address] [facility] Functional Status No Data Provided for This Section
--- NOTE | 2018-12-22 23:30 | NUR ---
received pt from ER to room 207, AAOx3, family at bedside, no resp distress, no c/o pain/discomfort, pt has history of skin cancer with multiple scars to BUE and BLE, bed in lowest and locked position, call light in reach
[2018-12-23] VITALS (11 sets, daily range): BP systolic 115–165; BP diastolic 54–70
[2018-12-23] MEDS: ALBUTEROL SULF 0.083% NEB SOLN 3 ML NEB NEB SCH ×6 (00:50→20:00)
[2018-12-23] MEDS: IPRATROPIUM BROMIDE 0.02% 2.5 ML NEB NEB SCH ×4 (00:50→20:00)
[2018-12-23 05:41] LABS: BASOPHILS % 0.1 % (0.0-1.0); EOSINOPHILS % 0.1 % (0.0-6.0); HEMATOCRIT 34.6 % (34.2-44.1); HEMOGLOBIN 11.5 g/dL (12.0-16.0); LYMPHOCYTES # (AUTO) 2.1 (1.0-3.2); LYMPHOCYTES % 16.3 % (18.0-39.1); MEAN CORPUSCULAR HEMOGLOBIN 32.9 pg (28-32); MEAN CORPUSCULAR HGB CONC 33.2 g/dL (31-35); MEAN CORPUSCULAR VOLUME 98.9 fL (81-99); MONOCYTES # (AUTO) 1.8 (0.2-0.8); NEUTROPHILS % 68.7 % (38.7-80.0); PLATELET COUNT 140 x10e3/uL (140-360); RED CELL DISTRIBUTION WIDTH 13.5 % (11.7-14.4)
[2018-12-23 06:13] LABS: ALBUMIN 3.5 g/dL (3.5-5.0); ALBUMIN/GLOBULIN RATIO 1.6 (0.8-2.0); ANION GAP 13.6 mmol/L (8-16); CALCIUM 8.8 mg/dL (8.4-10.2); CREATININE, SERUM 0.95 mg/dL (0.57-1.11); POTASSIUM 3.6 mmol/L (3.5-5.1)
[2018-12-23 06:45] LABS: CREATINE KINASE MB 0.9 ng/mL (0-5.0)
--- NOTE | 2018-12-23 07:00 | NUR ---
BEDSIDE SHIFT REPORT RECEIVED FROM THE QUARTER BACKER RN. PT FAMILY AT BEDSIDE. PT DENIES NEEDS AT THIS TIME.
--- NOTE | 2018-12-23 07:30 | NUR ---
DR. WALTON AT BEDSIDE TO SEE THE PT.
--- NOTE | 2018-12-23 08:30 | NUR ---
SCD APPLIED BILATERALLY PER THE ORDER.
[2018-12-23] MEDS: SODIUM CHLORIDE 0.9% 1000ML 1,000 ML IV SCH ×4 (09:17→22:24)
--- NOTE | 2018-12-23 10:30 | NUR ---
PT DAUGHTER KEEP PUTTING THE SCD'S TOO TIGHT. THIS NURSE RE APPLIED SCD'S AND EDUCATED PT FAMILY.
--- NOTE | 2018-12-23 11:00 | NUR ---
PAGED DR WALTON REGARDING HOME MEDS. CONTINUE ALL HOME MEDS EXCEPT ASPIRIN AND CLOPIDOGREL PER THE
--- NOTE | 2018-12-23 11:03 | History and Physical ---
CHIEF COMPLAINT: This is an 88-year-old female, who comes in with hematuria. HISTORY OF PRESENT ILLNESS: Ms. Joyce Cross is an 88-year-old female with a history of CVA, expressive aphasia, was in usual state of health until the patient started to have bleeding, which is from the perineal area. The patient is more aware of it being as a rectal bleeding that the patient came in, was found to have onur hematuria. No rectal bleeding noted. The patient admitted for urinary tract infection, hematuria and also for pneumonia, which is on a CT scan. PAST MEDICAL HISTORY: History of LA, history of CVA, history of CAD, history of hypertension, history of cardiac stents, and history of coronary artery disease as mentioned above. MEDICATIONS: She takes aspirin 81 mg, clopidogrel 75 mg, Keppra 500 mg at bedtime, lisinopril 10 mg daily, magnesium oxide 400 mg tablets daily, potassium gluconate 99 mg, simvastatin 20 mg, and triamcinolone topically b.i.d. PAST SURGICAL HISTORY: Cardiac stents and otherwise noncontributory. ALLERGIES: ALLERGIC TO PHENERGAN. FAMILY HISTORY: Hypertension AND coronary artery disease. SOCIAL HISTORY: No EtOH. No IV drug abuse. Daughter is primary memory care program resident. REVIEW OF SYSTEMS: Negative for chest pain. No shortness of breath. Positive for dysuria and hematuria. No nausea, vomiting, or diarrhea. No constipation. No rectal bleeding. No hematochezia. No hematemesis. Positive for cough and positive for productive sputum in the last 24-48 hours. PHYSICAL EXAMINATION: VITAL SIGNS: Temperature is 99.2, pulse 91, respirations of 22, blood pressure is 146/66, pulse oximetry of 95%. HEENT: Normocephalic, atraumatic. Pupils are reactive to light and accommodation. The patient has expressive aphasia. CVS: S1, S2 normal. Regular rate and rhythm. ABDOMEN: Nontender, nondistended. LUNGS: Decreased air entry into lung bases. Positive for some few rhonchi in the lower bases. EXTREMITIES: No clubbing, no cyanosis, no edema. Right lower extremity and right upper extremity weakness neurologically otherwise nonfocal. [place]ORY [place]: [place] [address], hemoglobin of 13.6, hematocrit of 40.3, platelet count is 168. Chemistry; sodium of 140, potassium of 4.4, BUN of 30, creatinine of 1.20. Coags; PT and INR 14.3 and 1.06. Urine, moderate bacteria. Positive for nitrites and also blood 3+. IMAGING STUDIES: Abdominal CT shows limited study without intravenous contrast. No nephrolithiasis. Bladder wall thickening could be due to cystitis. Colonic diverticulosis. Pelvic mass with calcification. Enlarged uterine fibroid and also posterior bilateral lobe with hazy opacities probably subsegmental atelectasis. Microbiology; urine culture and blood cultures are pending. ASSESSMENT: 1. Urinary tract infection with hematuria, probably cystitis. The patient is currently on Rocephin and azithromycin. 2. Questionable pneumonia with productive cough. The patient is currently on azithromycin and Rocephin. We will wait for blood cultures and also urine cultures. 3. Acute renal failure. Continue monitoring the patient's kidney function, is already better today. 4. GI prophylaxis will be given. 5. Deep venous thrombosis prophylaxis with SCDs. Further recommendation per clinical course. Medications from home will be reinstated including simvastatin for hyperlipidemia, Keppra for history of seizures, and albuterol and Atrovent treatment for pneumonia. Further recommendation per clinical course. We will continue to monitor the patient. Labs will be repeated tomorrow and continuous monitoring of telemetry continued. MD GARETH Holm/MODL /[id number]
[2018-12-23] MEDS ORDERED: LISINOPRIL 10 MG TAB PO SCH (12:00)
[2018-12-23] MEDS: METOPROLOL TARTRATE 50 MG TAB PO SCH (12:24)
[2018-12-23] MEDS: MULTIVITAMINS/MINERALS TAB PO SCH (12:24)
[2018-12-23] MEDS: LISINOPRIL 20 MG TAB PO SCH (12:25)
[2018-12-23 15:02] LABS: CREATINE KINASE MB 0.8 ng/mL (0-5.0)
[2018-12-23] MEDS: TRIAMCINOLONE ACET 0.1% CREAM 15 GM TUBE TOP SCH (16:10)
--- NOTE | 2018-12-23 19:00 | NUR ---
BEDSIDE SHIFT REPORT GIVEN TO THE HR RECEPTIONIST RN. PT DENIED FURTHER NEEDS.
[2018-12-23] MEDS: AZITHROMYCIN 500MG/NS 250 ML 250 ML IV SCH (19:52)
[2018-12-23] MEDS: POTASSIUM GLUCONATE 99 MG PO SCH (21:00)
[2018-12-23] MEDS: CEFTRIAXONE SOD 1 GM/NS 50 ML 50 ML IV SCH (21:07)
[2018-12-23] MEDS: LEVETIRACETAM 500 MG TAB PO SCH (21:07)
[2018-12-23] MEDS: MAGNESIUM OXIDE 400 MG TAB PO SCH (21:07)
[2018-12-23] MEDS: SIMVASTATIN 20 MG TAB PO SCH (21:07)
[2018-12-24] VITALS (7 sets, daily range): BP systolic 135–170; BP diastolic 62–72
[2018-12-24] MEDS: IPRATROPIUM BROMIDE 0.02% 2.5 ML NEB NEB SCH ×4 (00:15→19:40)
[2018-12-24] MEDS: ALBUTEROL SULF 0.083% NEB SOLN 3 ML NEB NEB SCH ×6 (00:15→19:40)
[2018-12-24 05:16] LABS: BASOPHILS % 0.1 % (0.0-1.0); EOSINOPHILS % 0.6 % (0.0-6.0); HEMATOCRIT 32.5 % (34.2-44.1); HEMOGLOBIN 10.8 g/dL (12.0-16.0); LYMPHOCYTES # (AUTO) 1.9 (1.0-3.2); LYMPHOCYTES % 26.6 % (18.0-39.1); MEAN CORPUSCULAR HEMOGLOBIN 32.8 pg (28-32); MEAN CORPUSCULAR HGB CONC 33.2 g/dL (31-35); MEAN CORPUSCULAR VOLUME 98.8 fL (81-99); MONOCYTES # (AUTO) 1.1 (0.2-0.8); MONOCYTES % 15.2 % (4.4-11.3); NEUTROPHILS # (AUTO) 4.2 (2.1-6.9); NEUTROPHILS % 57.1 % (38.7-80.0); PLATELET COUNT 137 x10e3/uL (140-360); RED BLOOD COUNT 3.29 x10e6/uL (3.6-5.1); RED CELL DISTRIBUTION WIDTH 13.6 % (11.7-14.4)
[2018-12-24 05:40] LABS: BLOOD UREA NITROGEN 16 mg/dL (7-26); BUN/CREATININE RATIO 20 (6-25); CALCIUM 8.6 mg/dL (8.4-10.2); CARBON DIOXIDE 18 mmol/L (22-29); CHLORIDE 113 mmol/L (98-107); CREATININE, SERUM 0.82 mg/dL (0.57-1.11); EST GLOMERULAR FILTRATION RATE > 60 ML/MIN (60-); GLUCOSE 88 mg/dL (74-118); SODIUM 139 mmol/L (136-145)
--- NOTE | 2018-12-24 05:57 | Diagnostic Imaging Report ---
EXAMINATION: CHEST SINGLE (PORTABLE) INDICATION: ^PNEUMONIA ^[id number] ^[id number] COMPARISON: 12/22/2018 FINDINGS: AP view TUBES and LINES: None. LUNGS: Lungs are well inflated. Pulmonary vascular congestion and mild interstitial edema. Mildly increased left basilar hazy opacification. PLEURA: No pleural effusion or pneumothorax. HEART AND MEDIASTINUM: The cardiomediastinal silhouette is unremarkable. BONES AND SOFT TISSUES: No acute osseous lesion. Partially seen right humeral head fracture deformity. Soft tissues are unremarkable. UPPER ABDOMEN: No free air under the diaphragm. IMPRESSION: Pulmonary vascular congestion and mild interstitial edema. Mildly increased left basilar hazy opacities, could represent subsegmental atelectasis versus developing pneumonia. Signed by: Dr. Zenon Conte MD on 12/24/2018 5:54 AM
--- NOTE | 2018-12-24 07:00 | NUR ---
BEDSIDE SHIFT REPORT RECEIVED FROM THE COMPUTER REPAIR ENGINEER RN. PT DENIES NEEDS AT THIS TIME
[2018-12-24] MEDS: METOPROLOL TARTRATE 50 MG TAB PO SCH (08:30)
[2018-12-24] MEDS: LISINOPRIL 20 MG TAB PO SCH (08:31)
[2018-12-24] MEDS: MULTIVITAMINS/MINERALS TAB PO SCH (08:32)
[2018-12-24] MEDS: TRIAMCINOLONE ACET 0.1% CREAM 15 GM TUBE TOP SCH ×2 (08:44→17:25)
[2018-12-24] MEDS ORDERED: NON-FORMULARY MEDICATION (Mu-Vits-Min Th/Lycopene/Lutein (Centrum Silver Tablet) 1 TAB) PO SCH (09:00)
--- NOTE | 2018-12-24 11:14 | NUR ---
PAGED DR. COLLAZO AND LEFT A MESSAGE REGARDING, IF PT NEEDS TELEMETRY MONITORING. NO NEW ORDERS RECEIVED.
--- NOTE | 2018-12-24 14:19 | NUR ---
CM placed call to pt's daughter Bhavya Osman [phone] and explained to her about Medicare Rights. She verbalized understanding. Signed copy placed in chart. Informed Ms. Osman that a copy was left in pt's transition of care folder at bedside.
--- NOTE | 2018-12-24 19:00 | NUR ---
BEDSIDE SHIFT REPORT GIVEN TO THE WORKSHOP MANAGER RN. PT DENIED FURTHER NEEDS.
[2018-12-24] MEDS: AZITHROMYCIN 500MG/NS 250 ML 250 ML IV SCH (20:20)
[2018-12-24] MEDS: POTASSIUM GLUCONATE 99 MG PO SCH (20:20)
[2018-12-24] MEDS: LEVETIRACETAM 500 MG TAB PO SCH (20:20)
[2018-12-24] MEDS: SIMVASTATIN 20 MG TAB PO SCH (20:21)
[2018-12-24] MEDS: MAGNESIUM OXIDE 400 MG TAB PO SCH (20:21)
--- NOTE | 2018-12-24 21:30 | NUR ---
LEFT AC IV WAS HURTING. D/C IV. CHARGE NURSE STARTED NEW IV TO LEFT HAND 20G. PATIENT TOLERATED WELL.
[2018-12-24] MEDS: CEFTRIAXONE SOD 1 GM/NS 50 ML 50 ML IV SCH (21:45)
[2018-12-25] VITALS: BP 146/65
[2018-12-25] MEDS: ALBUTEROL SULF 0.083% NEB SOLN 3 ML NEB NEB SCH ×2 (00:10→02:45)
[2018-12-25] MEDS: IPRATROPIUM BROMIDE 0.02% 2.5 ML NEB NEB SCH (00:10)
--- NOTE | 2018-12-25 04:45 | NUR ---
DISCHARGE PATIENT HOME WITH ALL BELONGINGS. VITAL SIGN STABLE AT THIS TIME
--- NOTE | 2018-12-25 06:24 | Discharge Summary ---
DISCHARGE DIAGNOSES: 1. Sepsis, secondary to urinary tract infection due to E. coli. 2. Leukocytosis. 3. Pneumonia. 4. Hypertension. 5. Hyperlipidemia. HISTORY OF PRESENT ILLNESS AND HOSPITAL COURSE: See hospital chart for full details. The patient is an 88-year-old lady who presented with fever, hematuria, leukocytosis, who was found to have some sepsis secondary to urinary tract infection with E. coli, initially grew out on the culture that was sensitive to antibiotics and actually was pansensitive to multiple different antibiotics. Her white count improved back to normal and she was really adamant and wanted to go home. So, the patient was then discharged home on p.o. Keflex 500 mg twice a day for 10 more days and she will follow up in 2 weeks with me. Please see hospital chart for full details. MD KEN Goddard/KARTHIKEYAN /[id number]
== END 2018-12-25 06:01 | disposition home or self-care (01) | DRG 871 ==
LOC: ER 18:59 → ERHOLD 22:35 → MED/SURG2 23:30
PROVIDERS: ADMIT Internal Medicine; ATTEND Internal Medicine
DX: A41.51 Sepsis due to Escherichia coli [E. coli] (principal); J18.9 Pneumonia, unspecified organism; N39.0 Urinary tract infection, site not specified; I10 Essential (primary) hypertension; E78.5 Hyperlipidemia, unspecified; B96.20 Unspecified Escherichia coli [E. coli] as the cause of diseases classified elsewhere; Z86.73 Personal history of transient ischemic attack (TIA), and cerebral infarction without residual deficits; I25.10 Atherosclerotic heart disease of native coronary artery without angina pectoris; Z95.5 Presence of coronary angioplasty implant and graft
CPT/HCPCS: 36415; 71045; 74176; 80048; 80053; 81001; 82150; 82550; 82553; 83690; 84484; 85025; 85610; 85730; 86850; 86900; 87040; 87086; 87186; 94640; 99284; J0456; J0696; J7030

== ENCOUNTER 2020-06-22 19:25 | Emergency (ER) | payer MEDICARE ==
[~2020-06-22] VITALS: Ht 170.2 cm; Wt 68.0 kg
[~2020-06-22 19:25] MED LIST changes: +TRIAMCINOLONE A15 G1 TOP
[2020-06-22] MEDS ORDERED: BUPIVACAINE 0.5%/EPI 30 ML SDV INJ ONE (19:45)
[2020-06-22] MEDS ORDERED: BUPIVACAINE HCL 0.5% 10ML MPF VIAL INJ ONE (19:53)
[2020-06-22] MEDS ORDERED: TETANUS/DIPHTHERIA TOX ADULT 0.5 ML SYR IM ONE (20:45)
[2020-06-22] MEDS ORDERED: CEPHALEXIN500 MG PO (20:48)
[2020-06-22 21:20] VITALS: BP 145/59
== END 2020-06-22 21:22 | disposition home or self-care (01) ==
LOC: ER 19:28
DX: S81.811A Laceration without foreign body, right lower leg, initial encounter (principal); W45.8XXA Other foreign body or object entering through skin, initial encounter; Y92.008 Other place in unspecified non-institutional (private) residence as the place of occurrence of the external cause; I10 Essential (primary) hypertension; I25.10 Atherosclerotic heart disease of native coronary artery without angina pectoris; I69.920 Aphasia following unspecified cerebrovascular disease; Z95.5 Presence of coronary angioplasty implant and graft; Z85.828 Personal history of other malignant neoplasm of skin
CPT/HCPCS: 90471; 90714; 99284

== ENCOUNTER 2020-10-07 18:01 | Emergency (ER) | payer MEDICARE ==
[~2020-10-07] VITALS: Ht 170.2 cm; Wt 68.0 kg
[~2020-10-07 18:01] MED LIST changes: +CEPHALEXIN500 MG PO
[2020-10-07] MEDS ORDERED: HYDROCODONE/APAP 5MG-325MG TAB ONE (20:49)
[2020-10-07] MEDS ORDERED: LIDOCAINE 4% PATCH TP ONE (20:50)
[2020-10-07] MEDS ORDERED: IBUPROFEN 200 MG TAB ONE (20:58)
[2020-10-07] MEDS ORDERED: IBUPROFEN 400 MG TAB PO ONE (22:30)
[2020-10-07 22:34] VITALS: BP 171/64
== END 2020-10-07 21:00 | disposition home or self-care (01) ==
LOC: ER 18:24
DX: S42.031A Displaced fracture of lateral end of right clavicle, initial encounter for closed fracture (principal); W05.2XXA Fall from non-moving motorized mobility scooter, initial encounter; Y92.008 Other place in unspecified non-institutional (private) residence as the place of occurrence of the external cause; I10 Essential (primary) hypertension; I69.320 Aphasia following cerebral infarction; I25.2 Old myocardial infarction; Z95.5 Presence of coronary angioplasty implant and graft
CPT/HCPCS: 99283